=== PATIENT | female | born 1950 | race Caucasian/White ===

== ENCOUNTER 2022-12-16 08:01 | Day surgery (SDC) | payer MEDICARE ==
[~2022-12-16] VITALS: Ht 165.1 cm; Wt 60.0 kg
[2022-12-16 08:14] VITALS: BP 120/75
[2022-12-16] MEDS ORDERED: albumin 25% 100mL bottle x 1 IV PRN (08:20)
[2022-12-16] MEDS ORDERED: LIDOcaine 1% 30ml preserv. free vial SQ STA (08:20)
[2022-12-16] MEDS ORDERED: [UNRECOGNIZED DRUG - CODE] SUBCUT (08:34)
[2022-12-16] MEDS ORDERED: MIDO2.5T14 PO (08:34)
[2022-12-16] MEDS ORDERED: OMEP40CA21 PO (08:34)
[2022-12-16] MEDS ORDERED: SYN0.088T PO (08:34)
[2022-12-16] MEDS ORDERED: MAGN200T5 PO (08:34)
[2022-12-16 10:00] VITALS: BP 129/72
[2022-12-16 10:15] VITALS: BP 113/60
[2022-12-16 10:31] VITALS: BP 114/62
[2022-12-16 10:45] VITALS: BP 111/60
[2022-12-16 11:00] VITALS: BP 106/59
== END 2022-12-16 11:10 | disposition home or self-care (01) ==
LOC: SSTAY O 08:01
PROVIDERS: ATTEND Radiology Diagnostic Radiology
DX: K70.31 Alcoholic cirrhosis of liver with ascites (principal); I09.9 Rheumatic heart disease, unspecified; D63.8 Anemia in other chronic diseases classified elsewhere; L40.50 Arthropathic psoriasis, unspecified; I35.0 Nonrheumatic aortic (valve) stenosis; I95.9 Hypotension, unspecified; E46 Unspecified protein-calorie malnutrition; Z87.11 Personal history of peptic ulcer disease; Z88.1 Allergy status to other antibiotic agents; Z88.4 Allergy status to anesthetic agent; Z79.899 Other long term (current) drug therapy
CPT/HCPCS: 49083; J3490; P9047; A6258

== ENCOUNTER 2023-01-02 08:21 | Day surgery (SDC) | payer MEDICARE ==
[2023-01-02] VITALS (12 sets, daily range): BP systolic 84–104; BP diastolic 52–69
[~2023-01-02] VITALS: Ht 165.1 cm; Wt 60.9 kg
[~2023-01-02 08:21] MED LIST: MAGN200T5 PO; MIDO2.5T14 PO; OMEP40CA21 PO; SYN0.088T PO; [UNRECOGNIZED DRUG - CODE] SUBCUT
[2023-01-02] MEDS ORDERED: LIDOcaine 1% 30ml preserv. free vial SQ ONE (08:30)
[2023-01-02] MEDS: albumin 25% 100mL bottle x 1 IV PRN ×2 (09:46→10:39)
[2023-01-02] MEDS ORDERED: normal saline 1000ml 1,000 ML IV ONE (11:30)
[2023-01-02] MEDS ORDERED: normal saline 500ml IV soln 500 ML IV ONE (11:35)
== END 2023-01-02 12:10 | disposition home or self-care (01) ==
LOC: SSTAY O 08:21
PROVIDERS: ATTEND Radiology Vascular & Interventional Radiology
DX: K70.31 Alcoholic cirrhosis of liver with ascites (principal); N18.6 End stage renal disease; D64.9 Anemia, unspecified; L40.50 Arthropathic psoriasis, unspecified; I09.9 Rheumatic heart disease, unspecified
CPT/HCPCS: 49083; J3490; J7030; J7040; P9047; A6258; A6449

== ENCOUNTER 2023-01-28 14:58 | Emergency (ER) | payer MEDICARE ==
[~2023-01-28] VITALS: Ht 165.1 cm; Wt 54.0 kg
[~2023-01-28 14:58] MED LIST changes: +AMOX-580 PO; +LEVO50TA8 PO; -MAGN200T5 PO; -MIDO2.5T14 PO; +MIDO5TAB4 PO; +OMEP20CA16 PO; -OMEP40CA21 PO; -SYN0.088T PO; -[UNRECOGNIZED DRUG - CODE] SUBCUT
[2023-01-28 15:25] LABS: BASOPHILS # (AUTO) 0.1 X10'3 (0-0.2); BASOPHILS % (AUTO) 1.2 % (0-1); EOSINOPHILS % (AUTO) 0.3 % (0-6); HEMATOCRIT 33.7 % (35.0-45.0); HEMOGLOBIN 10.9 g/dl (12.0-16.0); LYMPHOCYTES # (AUTO) 1.2 X10'3 (1.1-4.8); LYMPHOCYTES % (AUTO) 18.8 % (21-51); MEAN CORPUSCULAR HEMOGLOBIN 32.5 PG (27.0-31.0); MEAN CORPUSCULAR HGB CONC 32.3 g/dL (33.0-36.5); MEAN CORPUSCULAR VOLUME 100.6 FL (78-98); MEAN PLATELET VOLUME 8.8 FL (7.4-10.4); MONOCYTES # (AUTO) 0.7 X10'3 (0-0.9); MONOCYTES % (AUTO) 9.9 % (2-12); NEUTROPHILS # (AUTO) 4.6 X10'3 (1.8-7.7); NEUTROPHILS % (AUTO) 69.8 % (42-75); PLATELET COUNT 155 X10'3 (140-440); RED BLOOD COUNT 3.35 X10'6 (4.20-5.60); RED CELL DISTRIBUTION WIDTH 20.4 % (11.5-14.5); WHITE BLOOD COUNT 6.6 X10'3 (4.5-11.0)
[2023-01-28 15:42] LABS: ALANINE AMINOTRANSFERASE 13 U/L (12-78); ALBUMIN 1.9 G/DL (3.4-5.0); ALBUMIN/GLOBULIN RATIO 0.4 (1.1-1.5); ALKALINE PHOSPHATASE 163 IU/L (46-116); ANION GAP 15 (8-16); ASPARTATE AMINO TRANSFERASE 28 U/L (10-37); BILIRUBIN,TOTAL 1.3 MG/DL (0.1-1.0); BLOOD UREA NITROGEN 12 MG/DL (7-18); BUN/CREATININE RATIO 3.3 (10.0-20.0); CALCIUM 8.8 MG/DL (8.5-10.1); CHLORIDE 97 MMOL/L (99-107); CREATININE 3.69 MG/DL (0.40-0.90); GLUCOSE 67 MG/DL (70-104); POTASSIUM 3.3 MMOL/L (3.5-5.1); SODIUM 138 MMOL/L (135-145); TOTAL CARBON DIOXIDE 25.8 MMOL/L (24-32); TOTAL PROTEIN 6.5 G/DL (6.4-8.2); eGFR 12 ML/MIN
[2023-01-28 15:49] LABS: MAGNESIUM 1.9 MG/DL (1.5-2.4)
[2023-01-28] MEDS ORDERED: LIDOcaine 1% W/epiNEPHrine 1:100,000 20ml vial SQ ONE (16:25)
[2023-01-28 16:33] LABS: PLATELET ESTIMATE NORMAL
[2023-01-28 16:34] LABS: ANISOCYTOSIS 3+
[2023-01-28] MEDS ORDERED: albumin (human) 25% 100 ML IV solution IV ONE ×2 (16:55)
--- NOTE | 2023-01-28 20:50 | NUR ---
PT READY FOR D/C, UPON SITTING UP TO EDGE OF BED, STATES A BOUT OF C/P WITH SOB AND DIZINES. PT HAND TURNED CYANOTIC, MD BECFKORD NOTIFED. PT 02 SATURATION DROPS TO 80 % ON 3L NSAL CANULA WITH ANY MOVEMENT. PT D/C BEING REVERSED. AND PT WILL BE ADMITTED TO HOSPITAL.
--- NOTE | 2023-01-28 20:56 | NUR ---
EKG WAS PERFORMED AND SHOWN TO MD. NO STEMI.
[2023-01-28 22:09] LABS: ABG BASE EXCESS 0.4 mmol/L (-2.0-2.0); ABG HCO3 23.7 mmol/L (22.0-26.0); ABG OXYGEN SATURATION 92.4 % (94-97); ABG PO2 (T) 67.6 mmHg (75.0-100.0); FCOHb 0.1 % (0.0-3.9); FMetHb 0.5 % (0.0-1.5); FO2Hb 91.8 % (94-97); TOTAL HEMOGLOBIN 8.6 G/dl (12.0-16.0)
--- NOTE | 2023-01-28 22:52 | NUR ---
PER PATIENT WILL REMAIN IN ED OVERNIGHT AND BE DISCHARGED AT SHIFT CHANGE FROM ED WITH SISTER TO TAKE PATIENT TO SCHEDULED DIALYSIS IN AM OF 01/29 PRIMARY RN ISELA EAGLE
[2023-01-29 08:44] VITALS: BP 78/36
--- NOTE | 2023-01-29 08:54 | NUR ---
[facility] called and informed pt was seen here last night and had a paracentesis removing 6 liters. Pt has had low BP during her visits and states that is normal for her. Pt alert and orient x 4. Stable at her current BP. Sister at bedside to take pt to her dialysis at 11:00 in [place].
--- NOTE | 2023-01-29 09:20 | NUR ---
[facility] nurse Obdulia called back after speaking with Dr. Cruz and pt advised to skip dialysis today and return on Friday.
== END 2023-01-29 10:27 | disposition home or self-care (01) ==
LOC: ER 14:59
DX: R18.8 Other ascites (principal); J90 Pleural effusion, not elsewhere classified; E13.22 Other specified diabetes mellitus with diabetic chronic kidney disease; I12.9 Hypertensive chronic kidney disease with stage 1 through stage 4 chronic kidney disease, or unspecified chronic kidney disease; N18.9 Chronic kidney disease, unspecified; E03.9 Hypothyroidism, unspecified; Z88.1 Allergy status to other antibiotic agents
CPT/HCPCS: 36415; 36600; 49083; 71045; 80053; 82803; 83735; 83880; 84484; 85008; 85018; 85025; 96374; 96376; 99285; P9047; A4615

== ENCOUNTER 2023-02-10 10:07 | Emergency (ER) | payer MEDICARE ==
[~2023-02-10] VITALS: Ht 165.1 cm; Wt 54.5 kg
--- NOTE | 2023-02-10 10:30 | NUR ---
patient received in bed 7 with dialysis catheter to right chest without dressing.
[2023-02-10] MEDS ORDERED: normal saline 1000ML IV soln IVB ONE (11:35)
[2023-02-10 12:14] LABS: CLARITY,URINE SLIGHTLY CLOUDY (Clear); COLOR,URINE YELLOW (Yellow); GLUCOSE, URINE NEGATIVE (Neg); KETONES,URINE TRACE mg/dl (Neg); LEUKOCYTE ESTERASE ,URINE MODERATE (Neg); NITRITES, URINE NEGATIVE (Neg); OCCULT BLOOD,URINE SMALL (Neg); PROTEIN,URINE 100 mg/dl (Neg); UROBILINOGEN,URINE 0.2 E.U/dL (0.2-1.0)
[2023-02-10 12:26] LABS: UA COLLECTION TYPE STRAIGHT CATH
[2023-02-10 12:26] LABS: BASOPHILS # (AUTO) 0.1 X10'3 (0-0.2); EOSINOPHILS % (AUTO) 0.1 % (0-6); HEMATOCRIT 33.3 % (35.0-45.0); HEMOGLOBIN 10.9 g/dl (12.0-16.0); LYMPHOCYTES # (AUTO) 1.1 X10'3 (1.1-4.8); LYMPHOCYTES % (AUTO) 15.2 % (21-51); MEAN CORPUSCULAR HGB CONC 32.6 g/dL (33.0-36.5); MEAN CORPUSCULAR VOLUME 101.2 FL (78-98); MEAN PLATELET VOLUME 8.5 FL (7.4-10.4); MONOCYTES # (AUTO) 0.6 X10'3 (0-0.9); MONOCYTES % (AUTO) 8.2 % (2-12); NEUTROPHILS # (AUTO) 5.5 X10'3 (1.8-7.7); NEUTROPHILS % (AUTO) 75.5 % (42-75); PLATELET COUNT 166 X10'3 (140-440); RED CELL DISTRIBUTION WIDTH 19.2 % (11.5-14.5); WHITE BLOOD COUNT 7.2 X10'3 (4.5-11.0)
[2023-02-10 12:27] LABS: BACTERIA,URINE 1+ /HPF (Neg); RBC,URINE 0-2 /HPF (0-2); SQUAMOUS EPITHELIAL CELL,UR MANY /LPF (FEW); WBC,URINE 50-100 /HPF (0-4)
[2023-02-10 12:30] LABS: ALANINE AMINOTRANSFERASE 13 U/L (12-78); ALBUMIN 1.8 G/DL (3.4-5.0); ALBUMIN/GLOBULIN RATIO 0.4 (1.1-1.5); ALKALINE PHOSPHATASE 240 IU/L (46-116); ANION GAP 12 (8-16); ASPARTATE AMINO TRANSFERASE 31 U/L (10-37); BLOOD UREA NITROGEN 23 MG/DL (7-18); BUN/CREATININE RATIO 4.6 (10.0-20.0); CALCIUM 8.8 MG/DL (8.5-10.1); CHLORIDE 99 MMOL/L (99-107); CREATININE 5.02 MG/DL (0.40-0.90); GLUCOSE 57 MG/DL (70-104); POTASSIUM 3.7 MMOL/L (3.5-5.1); SODIUM 139 MMOL/L (135-145); TOTAL CARBON DIOXIDE 27.8 MMOL/L (24-32); eGFR 8 ML/MIN
[2023-02-10 12:31] LABS: TRANSITIONAL EPI CELLS,URINE MODERATE /HPF
[2023-02-10 12:32] LABS: WBC CLUMPS,URINE MODERATE /HPF (NEGATIVE)
[2023-02-10 13:00] LABS: ANISOCYTOSIS 2+; PLATELET ESTIMATE NORMAL
[2023-02-10] MEDS ORDERED: vancomycin inj 1,000 MG in normal saline 250ml IV soln 250 ML IV STA (13:02)
[2023-02-10] MEDS ORDERED: cefTAZidime inj. 1 GM in normal saline 100ml IV soln 100 ML IV ONE (13:20)
[2023-02-10 16:19] VITALS: BP 91/50
== END 2023-02-10 16:21 | disposition home or self-care (01) ==
LOC: ER 10:08
DX: K74.60 Unspecified cirrhosis of liver (principal); N39.0 Urinary tract infection, site not specified; N18.6 End stage renal disease; I51.9 Heart disease, unspecified; E03.9 Hypothyroidism, unspecified; Z79.899 Other long term (current) drug therapy; Z88.1 Allergy status to other antibiotic agents; Z88.8 Allergy status to other drugs, medicaments and biological substances
CPT/HCPCS: 36415; 71045; 74176; 80053; 81001; 83605; 84145; 85008; 85025; 87040; 87088; 93005; 96361; 96365; 96366; 96367; 99285; A6258; J0713; J3370; J3490; J7030; J7050; A4353